=== PATIENT | female | born 1965 ===

== ENCOUNTER 2023-05-14 21:43 | Inpatient (IN) | payer MEDICAID ==
[~2023-05-14] VITALS: Ht 152.4 cm; Wt 70.5 kg
[2023-05-14 21:55] VITALS: BP 119/71; PULSE 61; RESP 18; TEMP 98.1; O2SAT 97
[2023-05-14] MEDS ORDERED: HALOPERIDOL 5 MG TABLET PO PRN (22:15)
[2023-05-14] MEDS ORDERED: ZOLPIDEM TARTRATE 10 MG TABLET PO PRN (22:15)
[2023-05-14] MEDS ORDERED: LORazepam 2 MG TABLET PO PRN (22:15)
[2023-05-15] MEDS ORDERED: LOPERAMIDE HCL 2 MG CAPSULE PO PRN (07:00)
[2023-05-15] MEDS ORDERED: IBUPROFEN 400 MG TABLET PO PRN (07:00)
[2023-05-15] MEDS ORDERED: PETROLATUM,WHITE 28 GM JELLY TP PRN (07:00)
[2023-05-15] MEDS ORDERED: CloNIDine HCL 0.1 MG TABLET PO PRN (07:00)
[2023-05-15] MEDS ORDERED: MAGNESIUM HYDROXIDE SUSPENSION 30 ML UDCUP PO PRN (07:00)
[2023-05-15] MEDS ORDERED: ACETAMINOPHEN 325 MG TABLET PO PRN (07:00)
[2023-05-15] MEDS ORDERED: GuaiFENesin/D-METHORPHAN [SUGAR-FREE] 200-20MG/10 ML SYRUP UDCUP PO PRN (07:00)
[2023-05-15] MEDS ORDERED: NICOTINE 14 MG/24 HOUR PATCH TD PRN (07:00)
[2023-05-15] MEDS ORDERED: MAG HYDROX/AL HYDROX/SIMETH ES 30 ML SUSPENSION UDCUP PO PRN (07:00)
[2023-05-15] MEDS ORDERED: DOCUSATE SODIUM 100 MG CAPSULE PO PRN (07:00)
[2023-05-15] MEDS ORDERED: ONDANSETRON HCL 4 MG TABLET PO PRN (07:00)
[2023-05-15] MEDS ORDERED: ALBUTEROL SULFATE HFA 90 MCG/PUFF 8 GM INHALER IH PRN (07:00)
[2023-05-15 08:10] VITALS: BP 116/74; PULSE 80; RESP 16; TEMP 97.9; O2SAT 97
[2023-05-15 20:03] VITALS: RESP 17
[2023-05-16 08:47] VITALS: BP 116/79; PULSE 79; RESP 16; TEMP 97.9; O2SAT 98
[2023-05-16] MEDS: OLANZapine 5 MG TABLET PO SCH ×2 (10:15→20:16)
[2023-05-16 20:03] VITALS: RESP 17
[2023-05-17 08:34] VITALS: RESP 17
[2023-05-17] MEDS: OLANZapine 5 MG TABLET PO SCH ×2 (09:00→20:32)
[2023-05-17 20:00] VITALS: BP 112/76; PULSE 76; RESP 18; TEMP 97.9; O2SAT 98
[2023-05-18 08:22] VITALS: RESP 16
[2023-05-18] MEDS: OLANZapine 5 MG TABLET PO SCH ×3 (09:00→21:30)
[2023-05-19 06:34] VITALS: RESP 18
[2023-05-19] MEDS: OLANZapine 5 MG TABLET PO SCH (21:00)
[2023-05-20 05:28] VITALS: BP 115/77; PULSE 77; RESP 18; TEMP 97.8; O2SAT 96
[2023-05-20] MEDS: OLANZapine 5 MG TABLET PO SCH ×2 (08:13→20:24)
[2023-05-20 08:29] VITALS: RESP 18
[2023-05-20 20:44] VITALS: RESP 19
[2023-05-21] MEDS: OLANZapine 5 MG TABLET PO SCH ×2 (09:00→20:34)
[2023-05-21 10:58] VITALS: RESP 19
[2023-05-21 20:10] VITALS: RESP 18; TEMP 97.6
[2023-05-22] MEDS ORDERED: HALOPERIDOL LACTATE 5 MG/ML VIAL IM ONE (08:15)
[2023-05-22] MEDS ORDERED: DiphenhydrAMINE HCL 50 MG/ML VIAL IM ONE (08:15)
[2023-05-22] MEDS ORDERED: LORazepam 2 MG/ML VIAL IM ONE (08:15)
[2023-05-22 08:22] VITALS: RESP 16
[2023-05-22] MEDS: OLANZapine 5 MG TABLET PO SCH ×2 (08:54→20:06)
[2023-05-22] MEDS ORDERED: OLAN5TAB52 PO (16:28)
[2023-05-22 20:03] VITALS: RESP 18
[2023-05-23] MEDS: OLANZapine 5 MG TABLET PO SCH (08:32)
[2023-05-23 08:35] VITALS: RESP 16
== END 2023-05-23 10:30 | disposition home or self-care (01) | DRG 750 ==
LOC: B3A 21:55
PROVIDERS: ADMIT Psychiatry & Neurology Child & Adolescent Psychiatry; ATTEND Psychiatry & Neurology Child & Adolescent Psychiatry
DX: F25.1 Schizoaffective disorder, depressive type (principal); R45.851 Suicidal ideations; F41.9 Anxiety disorder, unspecified; G47.00 Insomnia, unspecified; R10.13 Epigastric pain
CPT/HCPCS: J1200; J1630; J2060